=== PATIENT | female | born 1990 | race Caucasian/White ===

== ENCOUNTER 2018-08-04 10:07 | Emergency (ER) | payer OTHER ==
[~2018-08-04] VITALS: Ht 162.6 cm; Wt 53.5 kg
[~2018-08-04 10:07] MED LIST: VITAFOL-OB+DHA1 EACH PO
== END 2018-08-04 10:49 | disposition home or self-care (01) ==
LOC: ED 10:07
DX: J06.9 Acute upper respiratory infection, unspecified (principal)
CPT/HCPCS: 99283

== ENCOUNTER 2022-02-06 19:58 | Emergency (ER) | payer OTHER ==
[~2022-02-06] VITALS: Ht 162.6 cm; Wt 58.3 kg
[2022-02-06] MEDS ORDERED: METFORMIN HCL500 MG PO (20:14)
[2022-02-06] MEDS ORDERED: VITAMIN C1000 MG PO (20:15)
[2022-02-06] MEDS ORDERED: BUTALB-ACETAMI1 EACH PO (21:44)
== END 2022-02-06 22:17 | disposition home or self-care (01) ==
LOC: ED 19:58
DX: O99.351 Diseases of the nervous system complicating pregnancy, first trimester (principal); G43.909 Migraine, unspecified, not intractable, without status migrainosus; Z3A.01 Less than 8 weeks gestation of pregnancy
CPT/HCPCS: 36415; 80053; 85025; A9270; J1200; J2765; J7030

== ENCOUNTER 2024-11-29 09:05 | Emergency (ER) | payer OTHER | END 2024-11-29 09:36 | disposition home or self-care (01) | LOC: ED 09:05 | DX: K08.89 Other specified disorders of teeth and supporting structures (principal) ==